=== PATIENT | male | born 1995 | race Two or more races ===

== ENCOUNTER 2019-11-25 19:36 | Emergency (ER) | payer OTHER ==
[~2019-11-25] VITALS: Ht 165.1 cm; Wt 68.0 kg
[2019-11-25 20:14] LABS: BASOPHILS # (AUTO) 0.1 /CMM (0.0-0.2); BASOPHILS % (AUTO) 0.9 % (0.0-2.0); EOSINOPHILS % (AUTO) 2.7 % (0.0-6.0); HEMATOCRIT 42 % (39-51); HEMOGLOBIN 14.3 g/dL (13.5-17.5); LYMPHOCYTES # (AUTO) 3.1 /CMM (0.8-4.8); LYMPHOCYTES % (AUTO) 43.1 % (20.0-44.0); MEAN CORPUSCULAR HGB CONC 34 g/dl (31.0-36.0); MEAN CORPUSCULAR VOLUME 86 fL (80-96); MONOCYTES # (AUTO) 0.8 /CMM (0.1-1.30); MONOCYTES % (AUTO) 10.7 % (2.0-12.0); NEUTROPHILS # (AUTO) 3.1 /CMM (1.8-8.9); NEUTROPHILS % (AUTO) 42.6 % (43.0-81.0); PLATELET COUNT (AUTO) 334 /CMM (150-450); RED BLOOD CELL COUNT(AUTO) 4.91 MIL/uL (4.5-6.0); WHITE BLOOD COUNT (AUTO) 7.2 K/uL (4.3-11.0)
[2019-11-25 20:29] LABS: CALCIUM, SERUM 8.8 mg/dL (8.5-10.1); CREATININE 1.2 mg/dL (0.6-1.3); POTASSIUM 3.9 mmol/L (3.5-5.1)
[2019-11-25 20:35] LABS: ALBUMIN 4.3 g/dL (3.4-5.0); BILIRUBIN,DIRECT 0.1 mg/dL (0.0-0.2); BILIRUBIN,TOTAL 0.3 mg/dL (0.2-1.0); TOTAL PROTEIN, SERUM 7.6 g/dL (6.4-8.2)
[2019-11-25 20:36] LABS: SALICYLATE 0.8 mg/dL (2.8-20.0)
--- NOTE | 2019-11-25 20:41 | NUR ---
PATIENT CAME TO ER BIB RA C/O ETOH. PATIENT IS AGRESSIVE WITH [facility] STAFF UNWILLING TO COOPERATE. PATIENT IS ALERT AND ORIENTED, UNWILLING TO ANSWER QUESTIONS. NO SOB. BREATHING EVENLY AND UNLABORED ON ROOM AIR. CONNECTED TO MONITOR.
--- NOTE | 2019-11-25 20:47 | NUR ---
PT BROTHER BETHANY GRIFFITH
--- NOTE | 2019-11-25 21:06 | NUR ---
PATIENT IS AMBULATORY WITH A STEADY GAIT.
--- NOTE | 2019-11-25 21:06 | NUR ---
PATIENT AMBULATED TO THE RESTROOM
--- NOTE | 2019-11-25 21:07 | NUR ---
URINE COLLECTED AND SENT TO LAB.
--- NOTE | 2019-11-25 21:10 | NUR ---
PATIENT IS AAOX4. PATIENT STATES, "I AM SO CONFUSED BRO, I DON'T KNOW HOW I GOT HERE. THE LAST THING I REMEMBER IS DRINKING ALCOHOL AND I AM HERE IN THIS BED. I LIVE ALONE IN [facility]."
--- NOTE | 2019-11-25 21:11 | NUR ---
PATIENT GIVEN WATER TO DRINK, OKAY'D BY TAWANDA OSEI.
[2019-11-25 21:43] LABS: APPEARANCE,URINE Clear (CLEAR); BILIRUBIN,URINE Negative (NEGATIVE); BLOOD, URINE Trace-intact Ery/uL (NEGATIVE); COLOR,URINE Yellow (YELLOW); KETONES,URINE Negative (NEGATIVE); LEUKOCYTE ESTERASE ,URINE Negative (NEGATIVE); NITRITE, URINE Negative (NEGATIVE); PH,URINE 6.5 (5.0-8.0); PROTEIN,URINE Negative (NEGATIVE); UGLUCOSE Negative (NEGATIVE); UROBILINOGEN,URINE 0.2 EU/dL (0.2)
[2019-11-25 21:58] LABS: BACTERIA,URINE Rare /HPF (None Seen); SQUAMOUS EPITHELIAL CELL,UR Few /HPF (None Seen); WBC,URINE NONE SEEN /HPF (0-3)
[2019-11-25 23:23] VITALS: BP 122/74
--- NOTE | 2019-11-25 23:23 | NUR ---
Patient discharged to home in stable condition. Written and verbal after care instructions given. Patient verbalizes understanding of instruction.
--- NOTE | 2019-11-25 23:23 | NUR ---
IV removed. Catheter intact and site benign. Pressure and 4x4 applied to site. No bleeding noted.
== END 2019-11-25 23:24 | disposition home or self-care (01) ==
LOC: ER 19:38
DX: S51.811A Laceration without foreign body of right forearm, initial encounter (principal); F10.129 Alcohol abuse with intoxication, unspecified; F29 Unspecified psychosis not due to a substance or known physiological condition; F12.10 Cannabis abuse, uncomplicated; W26.8XXA Contact with other sharp object(s), not elsewhere classified, initial encounter; Y93.89 Activity, other specified; Y92.89 Other specified places as the place of occurrence of the external cause; Y99.8 Other external cause status; Y90.7 Blood alcohol level of 200-239 mg/100 ml
CPT/HCPCS: 36415; 70450; 73090; 80048; 80076; 80305; 80307; 80329; 81001; 82962; 85025; 99285; G0480; 81000-TC